=== PATIENT | female | born 1965 | race Caucasian/White ===

== ENCOUNTER 2017-03-29 18:46 | Observation (INO) ==
[2017-03-29] MEDS ORDERED: Ipratropium/Albuterol Neb 3 ML IH ONE (19:04)
[2017-03-29] MEDS ORDERED: Piperacillin/Tazobactam 3.375 GM in Water for inj. (sterile) 20 ML IVP ONE (19:04)
[2017-03-29] MEDS ORDERED: 0.9 % Sodium Chloride 1,000 ML IVC ONE ×2 (19:04→19:42)
[2017-03-29] MEDS ORDERED: methylPREDNISolone 125 MG/2 ML VIAL IVP ONE (19:04)
[2017-03-29] MEDS ORDERED: Vancomycin 1,000 MG in D5% in Water 250 ML IVPB ONE (19:05)
--- NOTE | 2017-03-29 19:09 | Emergency Department Note ---
Disposition Clinical Impression: COPD exacerbation, SIRS (systemic inflammatory response syndrome) Disposition: Admitted As Inpatient Condition: Fair Time of Disposition: 19:42 SOB HPI - General Chief Complaint: ED Shortness of Breath/Dyspnea Stated Complaint: Back Pain Time Seen by Provider: 03/29/17 18:56 Source: patient Mode of arrival: ambulatory Limitations: no limitations Nursing Notes Reviewed: Yes Vital Signs Reviewed: Yes - History of Present Illness 52-year-old female with a history of COPD, chronic back pain presents for evaluation of shortness of breath and cough. However chief complaint was initially back pain. Patient states she been feeling short of breath for the past 2 weeks. During the past week she has developed a productive cough. No notable fevers. Patient also noted some chest pain. Patient states that she has chronic back pain with multiple surgeries in the past. Patient also states that she was seen here in the past week and was been on a course of steroids. The patient also states she has been increasing use of her inhaler at home. The patient is not oxygen dependent. Patient denies any abdominal pain. No nausea or vomiting. - Related Data Home Medications Medication Instructions Recorded Confirmed Albuterol Neb [Proventil Neb] 2.5 mg IH Q4HR PRN 03/29/17 03/29/17 Baclofen [Lioresal] 10 mg PO TID 03/29/17 03/29/17 Diltiazem HCl [Diltiazem ER] 120 mg PO DAILY 03/29/17 03/29/17 Fluticasone/Salmeterol [Advair 1 each IH BID 03/29/17 03/29/17 500-50 Diskus] Gabapentin [Neurontin] 300 mg PO TID 03/29/17 03/29/17 Montelukast [Singulair] 10 mg PO DAILY 03/29/17 03/29/17 clonazePAM [Klonopin] 1 mg PO BID 03/29/17 03/29/17 predniSONE [PredniSONE] See Taper PO DAILY 03/29/17 03/29/17 Previous Rx's Medication Instructions Recorded Albuterol Sulfate [Albuterol 4 puff IH Q4HR #1 hfa.aer.ad 03/24/17 Inhaler] Meloxicam [Mobic] 7.5 mg PO DAILY #10 tablet 03/24/17 Allergies Allergy/AdvReac Type Severity Reaction Status Date / Time No Known Allergies Allergy Verified 03/23/17 19:51 All systems ED: reviewed and negative except as stated. Constitutional: Reports: as per HPI. Denies: fever Eyes: Reports: as per HPI ENT ED: Reports: as per HPI Cardiovascular: Reports: as per HPI Respiratory: Reports: as per HPI, cough, dyspnea, sputum production Gastrointestinal: Reports: as per HPI. Denies: abdominal pain, nausea, vomiting Genitourinary: Reports: as per HPI Musculoskeletal: Reports: as per HPI Integumentary: Reports: as per HPI Neurological: Reports: as per HPI Psychiatric: Reports: as per HPI Endocrine: Reports: as per HPI Hematological/Lymphatic: Reports: as per HPI Allergic/Immunologic: Reports: as per HPI Past Medical History - Past Medical History Medical history: Reports: atrial fibrillation, COPD Psychiatric history: Reports: no psych history - Social History Smoking Status: Current every day smoker Smokeless Tobacco Status: No Alcohol use: Reports: none Drug use: Reports: none Physical Exam - General Limitations: no limitations General appearance: alert, in no apparent distress - Head Head exam: atraumatic, normocephalic, normal inspection - Eye Eye exam: Present: normal appearance, PERRL, EOMI - ENT ENT exam: normal exam, normal oropharynx, mucous membranes moist - Neck Neck exam: Present: normal inspection, trachea midline - Chest Chest inspection: Present: normal inspection - Respiratory Respiratory exam: Present: accessory muscle use, prolonged expiratory phase, other (Simple sentence conversational dyspneic, bibasilar rhonchi with upper airway inspiratory expiratory wheeze). Absent: respiratory distress - Cardiovascular Cardiovascular exam: Present: normal rhythm, tachycardia - Abdominal Exam Abdominal exam: Present: soft, Non-Tender - Extremities Exam Extremities exam: Present: normal inspection. Absent: pedal edema - Back Exam Back exam: Present: normal inspection - Neurological Exam Neurological exam: Present: alert, oriented X3, CN II-XII intact - Skin Skin exam: Present: warm, dry, intact, normal color Course Course Narrative: Patient seen and examined. Patient triggered our service with a potential source of infection. Patient will get broad spectrum antibiotic coverage. Patient also did do a nebs, steroids. Basic lab work including blood cultures. Disposition will likely be admission to the hospital service. - Reevaluation(s) Reevaluation #1: Patient HR is responding to IVFs. Patient chest x-ray shows no acute findings however given the patient's fever as well as symptoms and lung findings antibiotics were initiated. Time: 19:40 Reevaluation #2: Seen and examined. Patient is moving slightly better but still has inspiratory expiratory wheezes. Patient states that she typically takes oxycodone help with her chronic back pain. Has had multiple surgeries in the past. Patient will get appropriate pain medication emergent department. Time: 19:55 Reevaluation #3: Patient's breathing treatment completed Patient continues to have inspiratory expiratory wheezes throughout. Will re-dose albuterol. Time: 20:25 Additional Reevaluation(s): Patient's tachycardia and blood pressure improved throughout the emergency department stay. Patient's most recent set of vitals show blood pressure in the 140 systolic. Vital Signs Temperature 100.3 F H 03/29/17 18:48 Pulse Rate 139 03/29/17 18:48 Respiratory Rate 24 03/29/17 18:48 Blood Pressure 171/130 03/29/17 18:48 O2 Sat by Pulse Oximetry 98 03/29/17 18:48 Temperature 100.3 F H 03/29/17 18:48 Pulse Rate 121 03/29/17 21:15 Respiratory Rate 18 03/29/17 21:15 Blood Pressure 145/94 03/29/17 21:15 O2 Sat by Pulse Oximetry 95 03/29/17 21:15 Oxygen Delivery Oxygen Delivery Room Air Shortness of Breath/Dyspnea - MDM Narrative Medical decision making narrative: 52-year-old female presents for evaluation of dyspnea as well as back pain. Patient states she has a history of COPD. Patient notes she has been dyspneic for approximately 2 weeks. Chart review shows that the patient was recently seen and started on albuterol as well as steroids. Patient notes an increasing productive cough since that time. The patient did trigger our service criteria with tachycardia and tachypnea as well as fever. Patient received 2 L of IV crystalloid. The patient also received antibiotics and blood cultures. Patient 's chest x-ray shows no acute findings. Patient was treated with triple names as well as IV steroids. Patient had 1-2 word conversational dyspneic on exam. Patient's back pain likely exacerbated by the cough. Patient does have numerous back surgeries in the past. Patient will be admitted the hospital service for a COPD exacerbation. Chest x-ray findings did not reveal any pneumonia however given the patient's severity of symptoms antibiotics were initiated. Do not believe the patient has signs and symptoms of pulmonary embolism. Patient appears to have an infectious process given her underlying lung disease with COPD; COPD exacerbation is most likely diagnosis. Patient's vitals improved during the emergency department course. - Medical Records Medical records reviewed: Yes I reviewed the patient's medical records. Patient's records reviewed show that she does have a recent ED visit where she was given albuterol as well as a course of steroids. Patient did not receive antibiotic. - Lab Data Lab results reviewed: Yes I reviewed the patient's lab results. Result diagrams: 03/29/17 19:05 03/29/17 19:05 Lab Results 03/29/17 03/29/17 03/29/17 Range/Units 19:05 19:05 19:05 WBC 6.5 (4.3-11.1) K/mcL RBC 4.17 (3.82-4.97) M/mcL Hgb 12.1 (11.5-15.4) g/dL Hct 37.5 (35.3-44.9) % MCV 89.9 (83.0-100.0) fL MCH 29.0 (28.0-33.3) pg MCHC 32.3 (31.6-35.5) g/dL RDW 14.3 (11.5-14.5) % Plt Count 256 (140-400) K/mcL MPV 10.2 (9.4-12.4) fL Seg Neutrophils % 71.0 % Band Neutrophils % 3.0 (0-4) % Lymphocytes % 16.0 % Monocytes % 9.0 % Metamyelocytes % 1.0 H (0) % Neutrophils # 4.8 (1.6-8.9) K/mcL Lymphocytes # 1.0 (0.6-4.6) K/mcL Monocytes # 0.6 (0.0-1.3) K/mcL Hypersegmented Neuts Present A (Not Present) Platelet Estimate Normal (Normal) PT (9.4-12.1) Seconds INR VBG pH (7.32-7.42) pH Units VBG pCO2 (41-51) mmHg VBG pO2 (25-50) mmHg VBG HCO3 (21-27) mEq/L Sodium 142 (136-145) mEq/L Potassium 4.4 (3.5-5.1) mEq/L Chloride 112 H (98-107) mEq/L Carbon Dioxide 22 L (23-29) mEq/L BUN 20 (6-20) mg/dL Creatinine 0.85 (0.60-1.20) mg/dL Est GFR ( Amer) > 60 (> 60) Est GFR (Non-Af Amer) > 60 (> 60) BUN/Creatinine Ratio 24 (6-26) Glucose 103 (70-105) mg/dL Calculated Osmolality 297 (280-300) Lactic Acid 1.6 (0.5-2.2) mmol/L Calcium 9.3 (8.6-10.3) mg/dL Total Bilirubin 0.2 L (0.3-1.0) mg/dL Direct Bilirubin 0.0 (0.0-0.2) mg/dL Indirect Bilirubin 0.2 (0.0-1.2) mg/dL AST 9 L (13-39) Units/L ALT 4 L (7-52) Units/L Alkaline Phosphatase 87 (34-104) Units/L Troponin I (< 0.04) ng/mL B-Natriuretic Peptide (Less than 100) pg/mL Serum Total Protein 6.9 (6.4-8.9) g/dL Albumin 4.5 (3.5-5.7) g/dL Globulin 2.4 (2.4-3.5) g/dL Albumin/Globulin Ratio 1.9 (1.1-2.2) 03/29/17 03/29/17 03/29/17 Range/Units 19:05 19:05 19:05 WBC (4.3-11.1) K/mcL RBC (3.82-4.97) M/mcL Hgb (11.5-15.4) g/dL Hct (35.3-44.9) % MCV (83.0-100.0) fL MCH (28.0-33.3) pg MCHC (31.6-35.5) g/dL RDW (11.5-14.5) % Plt Count (140-400) K/mcL MPV (9.4-12.4) fL Seg Neutrophils % % Band Neutrophils % (0-4) % Lymphocytes % % Monocytes % % Metamyelocytes % (0) % Neutrophils # (1.6-8.9) K/mcL Lymphocytes # (0.6-4.6) K/mcL Monocytes # (0.0-1.3) K/mcL Hypersegmented Neuts (Not Present) Platelet Estimate (Normal) PT 10.3 (9.4-12.1) Seconds INR 1.0 VBG pH (7.32-7.42) pH Units VBG pCO2 (41-51) mmHg VBG pO2 (25-50) mmHg VBG HCO3 (21-27) mEq/L Sodium (136-145) mEq/L Potassium (3.5-5.1) mEq/L Chloride (98-107) mEq/L Carbon Dioxide (23-29) mEq/L BUN (6-20) mg/dL Creatinine (0.60-1.20) mg/dL Est GFR ( Amer) (> 60) Est GFR (Non-Af Amer) (> 60) BUN/Creatinine Ratio (6-26) Glucose (70-105) mg/dL Calculated Osmolality (280-300) Lactic Acid (0.5-2.2) mmol/L Calcium (8.6-10.3) mg/dL Total Bilirubin (0.3-1.0) mg/dL Direct Bilirubin (0.0-0.2) mg/dL Indirect Bilirubin (0.0-1.2) mg/dL AST (13-39) Units/L ALT (7-52) Units/L Alkaline Phosphatase (34-104) Units/L Troponin I < 0.03 (< 0.04) ng/mL B-Natriuretic Peptide 18 (Less than 100) pg/mL Serum Total Protein (6.4-8.9) g/dL Albumin (3.5-5.7) g/dL Globulin (2.4-3.5) g/dL Albumin/Globulin Ratio (1.1-2.2) 03/29/17 Range/Units 19:20 WBC (4.3-11.1) K/mcL RBC (3.82-4.97) M/mcL Hgb (11.5-15.4) g/dL Hct (35.3-44.9) % MCV (83.0-100.0) fL MCH (28.0-33.3) pg MCHC (31.6-35.5) g/dL RDW (11.5-14.5) % Plt Count (140-400) K/mcL MPV (9.4-12.4) fL Seg Neutrophils % % Band Neutrophils % (0-4) % Lymphocytes % % Monocytes % % Metamyelocytes % (0) % Neutrophils # (1.6-8.9) K/mcL Lymphocytes # (0.6-4.6) K/mcL Monocytes # (0.0-1.3) K/mcL Hypersegmented Neuts (Not Present) Platelet Estimate (Normal) PT (9.4-12.1) Seconds INR VBG pH 7.34 (7.32-7.42) pH Units VBG pCO2 42 (41-51) mmHg VBG pO2 55 H (25-50) mmHg VBG HCO3 23 (21-27) mEq/L Sodium (136-145) mEq/L Potassium (3.5-5.1) mEq/L Chloride (98-107) mEq/L Carbon Dioxide (23-29) mEq/L BUN (6-20) mg/dL Creatinine (0.60-1.20) mg/dL Est GFR ( Amer) (> 60) Est GFR (Non-Af Amer) (> 60) BUN/Creatinine Ratio (6-26) Glucose (70-105) mg/dL Calculated Osmolality (280-300) Lactic Acid (0.5-2.2) mmol/L Calcium (8.6-10.3) mg/dL Total Bilirubin (0.3-1.0) mg/dL Direct Bilirubin (0.0-0.2) mg/dL Indirect Bilirubin (0.0-1.2) mg/dL AST (13-39) Units/L ALT (7-52) Units/L Alkaline Phosphatase (34-104) Units/L Troponin I (< 0.04) ng/mL B-Natriuretic Peptide (Less than 100) pg/mL Serum Total Protein (6.4-8.9) g/dL Albumin (3.5-5.7) g/dL Globulin (2.4-3.5) g/dL Albumin/Globulin Ratio (1.1-2.2) - Radiology Data Radiology results reviewed: Yes I reviewed the patient's radiology results. Chest X-Ray 03/29/17 19:04 IMPRESSION: No acute cardiopulmonary disease D/ / Kerwin Casiano MD / Kerwin Casiano MD Interpreting Provider: Kerwin Casiano MD - EKG Data EKG attestation: Yes I reviewed and interpreted this EKG. EKG shows normal: Reports: sinus rhythm Rate: Reports: tachycardia Rhythm: Reports: NSR [place]/QRS: Reports: normal Interpretation: Reports: no acute changes S.B.A.R. - S.B.A.RKerri Situation: Demographics Background: Presenting Complaint Assessment: Vital Signs, Course and respsone to treatment, Patient/Family Expectation Recommendation: Barrier(s) to disposition, Recommendation based on pending studies, treatments, or consults S.B.A.RKerri Report Given to: Dr. Dereje Womack Repor Time: 20:58 Attestation Statement - Attestation Attestation: I, Mulugeta Munguia MD, personally evaluated this patient and discussed their management with the resident physician. I reviewed the resident's note and agree with the documented findings, medical decision making, and plan of care. 52-year-old female with history of COPD presents to the emergency department complaining of increased shortness of breath over the past week with increased productive cough. She has not looked at the sputum. No significant chest pain. Patient has not noticed any fever but was noted here to have a temp of 100.3 at triage. She was seen here 6 days ago for back pain and at that time was noted to have significant wheezing. She received nebulizer treatments and was discharged with prednisone and an albuterol inhaler. Patient states despite the medications or symptoms of gotten progressively worse. On examination patient is a well-developed well-nourished male in no acute distress. She is alert and oriented 3. There is no cyanosis or diaphoresis. Chest is nontender to palpation. Breath sounds are decreased bilaterally with tight diffuse bilateral expiratory wheezes. Heart tachycardic and regular. Abdomen soft and nontender with normal bowel sounds. No pedal edema. Chest x-ray shows no acute abnormality. EKG shows a sinus tachycardia with a heart rate of [address] segment or T-wave changes noted. Labs reviewed. The hospitalist, Dr. Reyez, was consulted and accepted admission of the patient.
[2017-03-29] MEDS ORDERED: Ketorolac 15 MG/ML VIAL IVP ONE (19:13)
[2017-03-29 19:20] LABS: Hematocrit 37.5 % (35.3-44.9); Hemoglobin 12.1 g/dL (11.5-15.4); Mean Corpuscular HGB Conc 32.3 g/dL (31.6-35.5); Mean Corpuscular Volume 89.9 fL (83.0-100.0); Mean Platelet Volume 10.2 fL (9.4-12.4); Platelet Count 256 K/mcL (140-400); Red Blood Count 4.17 M/mcL (3.82-4.97); Red Cell Distribution Width 14.3 % (11.5-14.5)
[2017-03-29 19:24] LABS: VBG HCO3 23 mEq/L (21-27); VBG PCO2 42 mmHg (41-51); VBG PH 7.34 pH Units (7.32-7.42); VBG PO2 55 mmHg (25-50)
[2017-03-29 19:34] LABS: Prothrombin Time 10.3 Seconds (9.4-12.1)
[2017-03-29 19:43] LABS: Alanine Aminotransferase 4 Units/L (7-52); Albumin 4.5 g/dL (3.5-5.7); Albumin/Globulin Ratio 1.9 (1.1-2.2); Alkaline Phosphatase 87 Units/L (34-104); Aspartate Amino Transferase 9 Units/L (13-39); BUN/Creatinine Ratio 24 (6-26); Bilirubin,Indirect 0.2 mg/dL (0.0-1.2); Bilirubin,Total 0.2 mg/dL (0.3-1.0); Blood Urea Nitrogen 20 mg/dL (6-20); Calcium 9.3 mg/dL (8.6-10.3); Carbon Dioxide 22 mEq/L (23-29); Chloride 112 mEq/L (98-107); Globulin 2.4 g/dL (2.4-3.5); Glucose 103 mg/dL (70-105); Osmolality,Calculated 297 (280-300); Potassium 4.4 mEq/L (3.5-5.1); Sodium 142 mEq/L (136-145); Total Protein 6.9 g/dL (6.4-8.9); eGFR For African Americans > 60 (> 60); eGFR For Non-African Americans > 60 (> 60)
[2017-03-29 19:50] LABS: Monocytes # 0.6 K/mcL (0.0-1.3); Neutrophils # 4.8 K/mcL (1.6-8.9)
[2017-03-29 19:51] LABS: Hypersegmented Neutrophils Present (Not Present); Platelet Estimate Normal (Normal)
[2017-03-29] MEDS ORDERED: *HR* OxyCODONE Immed Rel 5 MG TABLET PO ONE (19:56)
[2017-03-29] MEDS ORDERED: Albuterol 2.5 MG/3 ML NEBULIZER IH ONE (20:25)
[2017-03-30] MEDS ORDERED: *HR* OxyCODONE Immed Rel 15 MG TABLET PO PRN (00:08)
[2017-03-30] MEDS ORDERED: OxyCODONE CONC 5 MG/0.25 ML ORAL.SYG PO PRN (00:31)
[2017-03-30] MEDS: Ipratropium/Albuterol Neb 3 ML IH SCH ×5 (00:53→21:54)
[2017-03-30] MEDS: Ipratropium/Albuterol Neb 3 ML IH PRN ×2 (00:59→08:19)
[2017-03-30] MEDS ORDERED: *HR* OxyCODONE Immed Rel 5 MG TABLET PO PRN ×2 (02:00→06:01)
--- NOTE | 2017-03-30 04:39 | Event Note ---
Date of Encounter: 03/30/17 Time of Encounter: 01:00 I have seen and examined pt independently. I have discussed with Resident physician Dr Jin regarding the management plan, plz see his documentation for details..
--- NOTE | 2017-03-30 04:53 | Internal Med History&Physical ---
<Issa Jin - Last Filed: 03/30/17 04:42> Date of Encounter: 03/30/17 Time of Encounter: 00:30 Assessment and Plan (1) COPD exacerbation Current visit: Yes Status: Acute CXR showed no acute process Patient reports mild improvement since admission Continue solumedrol 60 mg q6hr (2) Afib Current visit: Yes Status: Chronic Regular rhythm, tachycardic Patient states she was compliant with diltiazem at home Continue home diltiazem Qualifiers: Atrial fibrillation type: unspecified Qualified Code(s): I48.91 - Unspecified atrial fibrillation (3) Abdominal distention Current visit: Yes Status: Acute No abdominal pain or peritoneal signs currently Starting bowel regimen of docusate 100 mg BID, hold if diarrhea (4) GERD (gastroesophageal reflux disease) Current visit: Yes Status: Chronic Stable Qualifiers: Esophagitis presence: with esophagitis Qualified Code(s): K21.0 - Gastro- esophageal reflux disease with esophagitis (5) Tobacco abuse Current visit: Yes Status: Chronic Patient reports smoking 1/2 PPD (6) Chronic low back pain Current visit: No Status: Chronic Restarted home medications, save for oxycodone, which was started at lower dose of 10 mg (compared with 30) Checked OARRS, but no patient information available due to patient being from [place] and visiting here Added IV morphine 2mg q 6hr for breakthrough pain Qualifiers: Back pain laterality: bilateral Sciatica presence: with sciatica Sciatica laterality: sciatica laterality unspecified Qualified Code(s): M54.40 - Lumbago with sciatica, unspecified side; G89.29 - Other chronic pain; G89.29 - Other chronic pain (7) DVT prophylaxis Current visit: Yes Status: Acute Heparin subq q12h Internal Medicine - H&P: HPI Chief complaint: SOB Admitted From: Home Plans for Post Hospital Care: Home History of present illness: Ms. Vargas is a 52 year old female presenting with increased SOB consistent with the patient's "usual episodes of exacerbation" of her COPD. She complains of productive cough as well. She denies fever and chills. She denies palpitations. She tends to perseverate on her back pain, which is secondary to fractures and multiple surgeries.. She additionally complains of distention in her abdomen, though it is not significantly painful. She states her last bowel movement was yesterday morning. Past Med Surg Social Fam HX - Past Medical History Medical history: atrial fibrillation, COPD Psychiatric history: no psych history - Social History Smoking Status: Current every day smoker Smokeless Tobacco Status: No Alcohol use: none Drug use: none Internal Medicine - H&P: Meds Albuterol Sulfate [Albuterol Inhaler] 4 puff IH Q4HR #1 hfa.aer.ad 03/24/17 [Rx] Meloxicam [Mobic] 7.5 mg PO DAILY #10 tablet 03/24/17 [Rx] Albuterol Neb [Proventil Neb] 2.5 mg IH Q4HR PRN 03/29/17 [History] Baclofen [Lioresal] 10 mg PO TID 03/29/17 [History] Diltiazem HCl [Diltiazem ER] 120 mg PO DAILY 03/29/17 [History] Fluticasone/Salmeterol [Advair 500-50 Diskus] 1 each IH BID 03/29/17 [History] Gabapentin [Neurontin] 300 mg PO TID 03/29/17 [History] Montelukast [Singulair] 10 mg PO DAILY 03/29/17 [History] Oxycodone HCl 30 mg PO Q6H PRN 03/29/17 [History] clonazePAM [Klonopin] 1 mg PO BID 03/29/17 [History] predniSONE [PredniSONE] See Taper PO DAILY 03/29/17 [History] 3 Allergy/AdvReac Type Severity Reaction Status Date / Time No Known Allergies Allergy Verified 03/23/17 19:51 All Systems PM: A 10-system review of systems was performed and is negative for pertinent findings except as documented above in the HPI. Review of systems: As per HPI, otherwise negative. - Constitutional Vitals: Temp Pulse Resp BP Pulse Ox 98.0 F 124 14 164/106 96 03/30/17 04:26 03/30/17 04:26 03/30/17 04:26 03/30/17 04:26 03/30/17 04:26 General appearance: Present: cooperative, A&O X 3, pleasant, answers questions appropriately - Head Head exam: Present: atraumatic, normal inspection, normocephalic - ENT ENT exam: Present: mucous membranes moist - Neck Neck exam general surgery: Present: trachea midline - Respiratory Respiratory exam: Present: decreased breath sounds, wheezes (bilateral, scattered). Absent: accessory muscle use, respiratory distress, tachypnea - Cardiovascular Cardiovascular exam: Present: +S1, +S2, systolic murmur, tachycardia Additional comments: Regular Rhythm - GI/Abdominal GI/Abdominal exam: Present: distended, firm. Absent: tenderness, no peritoneal signs - Extremities Exam Extremities exam: Absent: pedal edema - Psychiatric Psychiatric exam: Present: normal affect, normal mood. Absent: agitated, anxious - Skin Skin exam: Present: dry, warm Internal Med - H&P Results - Labs CBC & Chem 7: 03/29/17 19:05 03/29/17 19:05 <Ortega Dejesus - Last Filed: 03/30/17 06:53> Date of Encounter: 03/30/17 Internal Medicine - H&P: HPI History of present illness: Ms. Vargas is a 52 year old female All Systems PM: A 10-system review of systems was performed and is negative for pertinent findings except as documented above in the HPI. - Constitutional Vitals: Temp Pulse Resp BP Pulse Ox 98.0 F 124 14 164/106 96 03/30/17 04:26 03/30/17 04:26 03/30/17 04:26 03/30/17 04:26 03/30/17 04:26 Internal Med - H&P Results - Labs CBC & Chem 7: 03/29/17 19:05 03/29/17 19:05 - Attending Attestation I have seen pt independently. I have discussed with resident physician regarding management plan. Agree with the documentation.
[2017-03-30] MEDS ORDERED: Albuterol 2.5 MG/3 ML NEBULIZER IH PRN (04:58)
[2017-03-30] MEDS ORDERED: Ondansetron 4 MG/2 ML VIAL IVP PRN (05:06)
[2017-03-30] MEDS ORDERED: Naloxone 0.4 MG/ML INJ IVP PRN (05:06)
[2017-03-30] MEDS ORDERED: *HR* Morphine 2 MG/ML SYRINGE IVP PRN ×2 (05:24→06:01)
[2017-03-30] MEDS: *HR* Heparin 5,000 UNIT/ML VIAL SQ SCH ×2 (08:04→18:45)
[2017-03-30] MEDS: methylPREDNISolone 125 MG/2 ML VIAL IVP SCH ×3 (08:05→14:01)
[2017-03-30] MEDS: *HR* OxyCODONE Immed Rel 15 MG TABLET PO PRN ×3 (08:36→21:21)
[2017-03-30] MEDS: clonazePAM 1 MG TABLET PO SCH ×2 (08:37→20:14)
[2017-03-30] MEDS: Diltiazem CD (24hr) 120 MG CAPSULE PO SCH (08:37)
[2017-03-30] MEDS: Baclofen 10 MG TABLET PO SCH ×3 (08:37→20:14)
[2017-03-30] MEDS: Gabapentin 300 MG CAPSULE PO SCH ×3 (08:37→20:14)
[2017-03-30 09:37] LABS: Basophils % 0.6 %; Hematocrit 33.7 % (35.3-44.9); Hemoglobin 10.8 g/dL (11.5-15.4); Immature Granulocytes % 3.9 % (0-4); Lymphocytes # 0.6 K/mcL (0.6-4.6); Lymphocytes % 9.4 %; Mean Corpuscular Hemoglobin 29.2 pg (28.0-33.3); Mean Corpuscular Volume 91.1 fL (83.0-100.0); Mean Platelet Volume 10.4 fL (9.4-12.4); Monocytes # 0.6 K/mcL (0.0-1.3); Monocytes % 9.2 %; Neutrophils # 5.3 K/mcL (1.6-8.9); Platelet Count 200 K/mcL (140-400); Red Cell Distribution Width 14.5 % (11.5-14.5); Segmented Neutrophils % 76.9 %
[2017-03-30 09:59] LABS: BUN/Creatinine Ratio 29 (6-26); Blood Urea Nitrogen 16 mg/dL (6-20); Carbon Dioxide 22 mEq/L (23-29); Chloride 112 mEq/L (98-107); Glucose 123 mg/dL (70-105); Osmolality,Calculated 297 (280-300); Potassium 4.3 mEq/L (3.5-5.1); Sodium 142 mEq/L (136-145); eGFR For African Americans > 60 (> 60); eGFR For Non-African Americans > 60 (> 60)
[2017-03-30] MEDS: Budesonide/Formoterol 160/4.5 MDI IH SCH ×2 (10:38→21:54)
--- NOTE | 2017-03-30 11:13 | Electrocardiograph Report ---
[place] [id number] Test Date: 2017-03-29 Pat Name: Darby Vargas Department: 104 Room: 3A22 Gender: F Metal Roofing Mechanic: : 1965 Requested By: Jodie See Order Number: [id number] Reading MD: Bulmaro Green MD Measurements Intervals [place] Rate: 131 P: 56 ND: 129 QRS: 62 QRSD: 81 T: 63 QT: 277 QTc: 354 Interpretive Statements SINUS TACHYCARDIA Electronically Signed On 03-30-2017 11:12:14 EST by Bulmaro Green MD
[2017-03-31] MEDS: *HR* OxyCODONE Immed Rel 15 MG TABLET PO PRN ×2 (03:21→09:44)
[2017-03-31] MEDS: Ipratropium/Albuterol Neb 3 ML IH SCH ×4 (03:30→21:10)
[2017-03-31 04:46] LABS: Hematocrit 31.5 % (35.3-44.9); Hemoglobin 10.2 g/dL (11.5-15.4); Mean Corpuscular HGB Conc 32.4 g/dL (31.6-35.5); Mean Corpuscular Hemoglobin 29.6 pg (28.0-33.3); Mean Corpuscular Volume 91.3 fL (83.0-100.0); Mean Platelet Volume 10.8 fL (9.4-12.4); Platelet Count 211 K/mcL (140-400); Red Blood Count 3.45 M/mcL (3.82-4.97); Red Cell Distribution Width 14.7 % (11.5-14.5)
[2017-03-31] MEDS: *HR* Heparin 5,000 UNIT/ML VIAL SQ SCH ×2 (05:06→18:05)
[2017-03-31 08:13] LABS: BUN/Creatinine Ratio 32 (6-26); Blood Urea Nitrogen 21 mg/dL (6-20); Calcium 8.4 mg/dL (8.6-10.3); Carbon Dioxide 26 mEq/L (23-29); Chloride 111 mEq/L (98-107); Glucose 93 mg/dL (70-105); Osmolality,Calculated 295 (280-300); Sodium 141 mEq/L (136-145); eGFR For African Americans > 60 (> 60); eGFR For Non-African Americans > 60 (> 60)
[2017-03-31] MEDS: clonazePAM 1 MG TABLET PO SCH ×2 (08:48→21:13)
[2017-03-31] MEDS: Gabapentin 300 MG CAPSULE PO SCH (08:48)
[2017-03-31] MEDS: Baclofen 10 MG TABLET PO SCH ×3 (08:48→21:14)
[2017-03-31] MEDS: predniSONE 20 MG TABLET PO SCH (08:48)
[2017-03-31] MEDS: Diltiazem CD (24hr) 120 MG CAPSULE PO SCH (08:48)
[2017-03-31] MEDS: Budesonide/Formoterol 160/4.5 MDI IH SCH ×2 (10:11→21:10)
[2017-03-31] MEDS: Levofloxacin 750 MG/150 ML 750 MG/150 ML BAG IVPB SCH (11:24)
--- NOTE | 2017-03-31 18:28 | Internal Med Progress Note ---
Date of Encounter: 03/31/17 Time of Encounter: 11:00 - Assessment and plan (1) COPD exacerbation Current Visit: Yes Status: Acute Assessment and plan: -Will continue dual nebs and Levaquin started as patient reports of no improvement in symptoms although on room air and now wheezing on exam -Patient requesting evaluation by pulmonology and will be consulted for further recommendations (2) Tobacco abuse Current Visit: Yes Status: Chronic Assessment and plan: -Smoking cessation recommended (3) Chronic low back pain Current Visit: No Status: Chronic Assessment and plan: -Patient with chronic back pain but has not been prescribe narcotics recently per [place] OARRS report -Patient offered IV Toradol but declined -Patient will need to follow-up with spine specialists and pain management as an outpatient Qualifiers: Back pain laterality: bilateral Sciatica presence: with sciatica Sciatica laterality: sciatica laterality unspecified Qualified Code(s): M54.40 - Lumbago with sciatica, unspecified side; G89.29 - Other chronic pain; G89.29 - Other chronic pain - Subjective Interval history: Patient on room air with no expiratory wheezes on exam this morning Patient unhappy when confronted about narcotic use Per pharmacy OARRS was pulled from the [facility] to [place] where patient is from and patient had not been on opiate narcotics or gabapentin recently so was discontinued. - Constitutional Vitals: Temp Pulse Resp BP Pulse Ox 98.1 F 122 16 135/88 99 03/31/17 15:27 03/31/17 15:27 03/31/17 15:47 03/31/17 15:27 03/31/17 15:47 General appearance: Present: cooperative, A&O X 3, pleasant, answers questions appropriately - Respiratory Respiratory exam: Present: CTAB. Absent: accessory muscle use, rales, rhonchi, wheezes - Cardiovascular Cardiovascular exam: Present: RRR, +S1, +S2. Absent: diastolic murmur, gallop, rubs, systolic murmur Internal Medicine: Result - Labs CBC & Chem 7: 03/31/17 04:33 03/31/17 07:17 Labs: Short CBC 03/31/17 Range/Units 04:33 WBC 7.8 (4.3-11.1) K/mcL Hgb 10.2 L (11.5-15.4) g/dL Hct 31.5 L (35.3-44.9) % Plt Count 211 (140-400) K/mcL BMP 03/31/17 07:17 Sodium 141 Potassium 4.0 Chloride 111 H Carbon Dioxide 26 BUN 21 H Creatinine 0.65 Glucose 93 Calcium 8.4 L - ABG Interpretation ABG results: PT/INR, D-dimer PT 10.3 Seconds (9.4-12.1) 03/29/17 19:05 Consult Discharge Plan - Plan Referrals: Pritesh Alexander DO [Resident] - 04/09/17 10:00 am
[2017-03-31] MEDS ORDERED: Gabapentin 300 MG CAPSULE PO STA (21:50)
[2017-04-01] MEDS: Ipratropium/Albuterol Neb 3 ML IH SCH ×3 (03:58→16:21)
[2017-04-01] MEDS: *HR* Heparin 5,000 UNIT/ML VIAL SQ SCH (06:00)
[2017-04-01] MEDS ORDERED: Diltiazem SR (12hr) 90 MG CAPSULE PO SCH (09:00)
[2017-04-01] MEDS: clonazePAM 1 MG TABLET PO SCH (09:27)
[2017-04-01] MEDS: Levofloxacin 750 MG/150 ML 750 MG/150 ML BAG IVPB SCH (09:27)
[2017-04-01] MEDS: Baclofen 10 MG TABLET PO SCH ×2 (09:27→14:48)
[2017-04-01] MEDS: predniSONE 20 MG TABLET PO SCH (09:27)
[2017-04-01 09:38] LABS: Hematocrit 34.6 % (35.3-44.9); Hemoglobin 10.9 g/dL (11.5-15.4); Mean Corpuscular HGB Conc 31.5 g/dL (31.6-35.5); Mean Corpuscular Hemoglobin 29.4 pg (28.0-33.3); Mean Corpuscular Volume 93.3 fL (83.0-100.0); Mean Platelet Volume 10.5 fL (9.4-12.4); Platelet Count 187 K/mcL (140-400); Red Blood Count 3.71 M/mcL (3.82-4.97); Red Cell Distribution Width 14.7 % (11.5-14.5)
[2017-04-01 09:41] LABS: Lymphocytes # 2.1 K/mcL (0.6-4.6)
[2017-04-01 09:48] LABS: BUN/Creatinine Ratio 27 (6-26); Blood Urea Nitrogen 16 mg/dL (6-20); Calcium 8.7 mg/dL (8.6-10.3); Carbon Dioxide 29 mEq/L (23-29); Chloride 108 mEq/L (98-107); Glucose 78 mg/dL (70-105); Osmolality,Calculated 296 (280-300); Sodium 143 mEq/L (136-145); eGFR For African Americans > 60 (> 60); eGFR For Non-African Americans > 60 (> 60)
[2017-04-01] MEDS: Budesonide/Formoterol 160/4.5 MDI IH SCH (10:48)
[2017-04-01 11:42] LABS: Eosinophils # 0.2 K/mcL (0.0-0.6); Monocytes # 0.5 K/mcL (0.0-1.3); Neutrophils # 4.1 K/mcL (1.6-8.9)
[2017-04-01 11:43] LABS: Platelet Estimate Normal (Normal)
[2017-04-01 11:58] VITALS: BP 141/101
[2017-04-01] MEDS ORDERED: Ketorolac 30 MG/ML VIAL IVP ONE (15:13)
[2017-04-01] MEDS ORDERED: *HR* Metoprolol 5 MG/5 ML VIAL IVP ONE (15:36)
--- NOTE | 2017-04-01 16:10 | Discharge Summary ---
Date of Encounter: 04/01/17 Time of Encounter: 11:00 - Discharge Diagnosis (1) COPD exacerbation Priority: Primary Status: Acute (2) Tobacco abuse Priority: Secondary Status: Chronic (3) Chronic low back pain Priority: Secondary Status: Inactive Qualifiers: Back pain laterality: unspecified Sciatica presence: with sciatica Sciatica laterality: sciatica laterality unspecified Qualified Code(s): M54.40 - Lumbago with sciatica, unspecified side; G89.29 - Other chronic pain; G89.29 - Other chronic pain - Discharge Medications Prescriptions: Ipratropium/Albuterol Neb [Duoneb] 3 ml IH [id number] #30 inhsol Diltiazem SR (12hr) [Cardizem SR] 90 mg PO BID #60 cap.er.12h Levofloxacin [Levaquin] 500 mg PO DAILY #7 tablet predniSONE [PredniSONE] 40 mg PO DAILY #10 tablet Home Medications: Albuterol Sulfate [Albuterol Inhaler] 4 puff IH Q4HR #1 hfa.aer.ad 03/24/17 [Rx] Meloxicam [Mobic] 7.5 mg PO DAILY #10 tablet 03/24/17 [Rx] Albuterol Neb [Proventil Neb] 2.5 mg IH Q4HR PRN 03/29/17 [History] Baclofen [Lioresal] 10 mg PO TID 03/29/17 [History] Fluticasone/Salmeterol [Advair 500-50 Diskus] 1 each IH BID 03/29/17 [History] Montelukast [Singulair] 10 mg PO DAILY 03/29/17 [History] clonazePAM [Klonopin] 1 mg PO BID 03/29/17 [History] Diltiazem SR (12hr) [Cardizem SR] 90 mg PO BID #60 cap.er.12h 04/01/17 [Rx] Ipratropium/Albuterol Neb [Duoneb] 3 ml IH [id number] #30 inhsol 04/01/17 [Rx] Levofloxacin [Levaquin] 500 mg PO DAILY #7 tablet 04/01/17 [Rx] predniSONE [PredniSONE] 40 mg PO DAILY #10 tablet 04/01/17 [Rx] Allergies/Adverse Reactions: 3 Allergy/AdvReac Type Severity Reaction Status Date / Time No Known Allergies Allergy Verified 03/23/17 19:51 Date of admission: 03/29/17 21:18 Primary care physician: PCP NONE Consults: 03/31/17 10:35 Consult to Electromechanical Technologist [CONS] Routine Reason for SW Consult: pt. not wanting to d/c home, and pt. is from [place] 03/31/17 18:34 Consult to Pulmonology [CONS] Routine Consulting Provider: [facility] Reason for Consult: COPD exacerbation Call Completed: No - Patient Status Disposition: Home, Self-Care Condition: Fair - Discharge Instructions Follow Up With: Pritesh Alexander DO [Resident] - 04/09/17 10:00 am Hospital course: Patient is a 52-year-old female with past medical history significant for COPD, tobacco dependence and chronic back pain who presented to the ER on 03/29/17 from [place] due to shortness of breath. She reported a recent onset of productive cough in addition to shortness of breath and decided to come to the ER for evaluation. In the ER, her labs were unremarkable and chest x-ray showed no acute findings. She was admitted to the medical floor for COPD exacerbation. During patients hospital stay, she remained on room air and was treated with IV Levaquin, DuoNebs and Solu-Medrol which was later Descalated to oral prednisone. Pulmonology was consulted and agreed with above management and recommendations for follow-up as an outpatient. She will be discharged to complete a 5 day course of Levaquin and prednisone; smoking cessation was also discussed. Patient will also need to follow-up with pain management for chronic back pain in addition to pulmonology as above. During patients hospital stay, there were also concerns for opiate abuse/ dependence; patient requesting opiate medications for chronic back pain even though her admission was for COPD exacerbation. An [place] report was pulled from [place] that showed patient had not been prescribed opiates in several months. She was prescribed benzodiazepine according [place] report which was continued during this hospitalization but was upset when opiates were discontinued. Patient was offered other alternative pain medications but only wanted opiate medications. - Time Spent with Patient Total time spent providing and/or coordinating discharge services: Less than 30 minutes - Constitutional Vitals: Temp Pulse Resp BP Pulse Ox 97.8 F 123 20 141/101 98 04/01/17 11:51 04/01/17 11:51 04/01/17 11:51 04/01/17 11:51 04/01/17 11:51 General appearance: Present: cooperative, A&O X 3, pleasant, answers questions appropriately - Respiratory Respiratory exam: Present: CTAB, wheezes. Absent: accessory muscle use, rales, rhonchi - Cardiovascular Cardiovascular exam: Present: RRR, +S1, +S2. Absent: diastolic murmur, gallop, rubs, systolic murmur
--- NOTE | 2017-04-01 18:39 | Pulmonology Consult Note ---
Date of Encounter: 04/01/17 Time of Encounter: 15:00 Assessment and Plan (1) COPD exacerbation Status: Acute Patient has multiple hospitalization and I have explained to her if she is not compliant with her inhalers as well as continue to smoke tobacco I do not expect her condition will improve and she would have multiple hospitalization with worsening of her lung function and she understand that. Patient is being appropriately treated have given her my contact information and business card to follow up as outpatient which she will need pulmonary function test as well as monitor her treatment with bronchodilators and pulmonary rehabilitation. She understand and agree with that and thank you very much for consultation. Patient is appropriate to be discharged home as long as she is compliant with her treatment. (2) Tobacco abuse Status: Chronic Advised patient to quit smoking History of Present Illness Consult date: 04/01/17 Requesting physician: Juan Sommers Reason for consult: COPD Chief complaint: Shortness of breath History of present illness: This is a very pleasant 52-year-old female with history of COPD and she has been hospitalized multiple times according to the patient and unfortunately she will continue to smoke tobacco and she has not seen a data processing manager in the past. Patient has productive cough and wheezing with dyspnea on exertion which is getting worse. Patient denies any fever or chills and denies any sick contact. Patient has chronic back pain and had multiple surgeries. Patient denies any history of significant lung disease in the family is. She denies any hemoptysis and she is not regularly taking inhalers. She normally respond to the treatment when she is hospitalized but then she will have problems again. She denies any fever or chills and no skin lesions. Past Med Surg Social Fam HX - Past Medical History Medical history: atrial fibrillation, COPD Psychiatric history: no psych history - Social History Smoking Status: Current every day smoker Smokeless Tobacco Status: No Alcohol use: none Drug use: none Medications and Allergies Albuterol Sulfate [Albuterol Inhaler] 4 puff IH Q4HR #1 hfa.aer.ad 03/24/17 [Rx] Meloxicam [Mobic] 7.5 mg PO DAILY #10 tablet 03/24/17 [Rx] Albuterol Neb [Proventil Neb] 2.5 mg IH Q4HR PRN 03/29/17 [History] Baclofen [Lioresal] 10 mg PO TID 03/29/17 [History] Fluticasone/Salmeterol [Advair 500-50 Diskus] 1 each IH BID 03/29/17 [History] Montelukast [Singulair] 10 mg PO DAILY 03/29/17 [History] clonazePAM [Klonopin] 1 mg PO BID 03/29/17 [History] Diltiazem SR (12hr) [Cardizem SR] 90 mg PO BID #60 cap.er.12h 04/01/17 [Rx] Ipratropium/Albuterol Neb [Duoneb] 3 ml IH [id number] #30 inhsol 04/01/17 [Rx] Levofloxacin [Levaquin] 500 mg PO DAILY #7 tablet 04/01/17 [Rx] predniSONE [PredniSONE] 40 mg PO DAILY #10 tablet 04/01/17 [Rx] 3 Allergy/AdvReac Type Severity Reaction Status Date / Time No Known Allergies Allergy Verified 03/23/17 19:51 All Systems: A 10-system review of systems was performed and is negative for pertinent findings except as documented above in the HPI. Physical Examination Vital Signs: Refer to nursing documentation for vital signs General appearance: appears uncomfortable Eyes: nonicteric ENT: oropharynx moist Neck: supple Effort: mildly labored Inspection: hyperextended Auscultation: bilateral: wheezes Percussion: bilateral: not dull Cardiovascular: regular rate and rhythm Gastrointestinal: normoactive bowel sounds Extremities: no cyanosis, no edema normal mental status, non-focal exam mood appropriate Results - Laboratory Findings CBC and BMP: 04/01/17 09:02 04/01/17 09:02 PT/INR, D-dimer PT 10.3 Seconds (9.4-12.1) 03/29/17 19:05 Abnormal lab findings: Abnormal lab results RBC 3.71 M/mcL (3.82-4.97) L 04/01/17 09:02 Hgb 10.9 g/dL (11.5-15.4) L 04/01/17 09:02 Hct 34.6 % (35.3-44.9) L 04/01/17 09:02 MCHC 31.5 g/dL (31.6-35.5) L 04/01/17 09:02 RDW 14.7 % (11.5-14.5) H 04/01/17 09:02 Metamyelocytes % 2.0 % (0) H 04/01/17 09:02 Myelocytes % 7.0 % (0) H 04/01/17 09:02 Hypersegmented Neuts Present (Not Present) A 03/29/17 19:05 VBG pO2 55 mmHg (25-50) H 03/29/17 19:20 Chloride 108 mEq/L (98-107) H 04/01/17 09:02 BUN/Creatinine Ratio 27 (6-26) H 04/01/17 09:02 Total Bilirubin 0.2 mg/dL (0.3-1.0) L 03/29/17 19:05 AST 9 Units/L (13-39) L 03/29/17 19:05 ALT 4 Units/L (7-52) L 03/29/17 19:05 - Diagnostic Findings Chest x-ray: report reviewed, image reviewed - Clinical Findings Intake & Output: Intake & Output 04/01/17 04/01/17 04/01/17 07:59 15:59 23:59 Intake Total 480 / 480 510 / 510 Output Total 1600 / 1600 800 / 800 Balance -1120 / -1120 -290 / -290 Weight 70.3 kg Consult Discharge Plan - Plan Referrals: Pritesh Alexander DO [Resident] - 04/09/17 10:00 am Sancho Bhatia MD [Partnered Physician] - (OFFICE WILL CALL WITH APPOINTMENT. WEB REQUEST ENTERED.) Josef Reilly DO [Partnered Physician] - 04/13/17 7:30 am Prescriptions: Ipratropium/Albuterol Neb [Duoneb] 3 ml IH [id number] #30 inhsol Diltiazem SR (12hr) [Cardizem SR] 90 mg PO BID #60 cap.er.12h Levofloxacin [Levaquin] 500 mg PO DAILY #7 tablet predniSONE [PredniSONE] 40 mg PO DAILY #10 tablet
--- NOTE | 2017-04-03 09:53 | Electrocardiograph Report ---
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
== END 2017-04-01 16:55 | disposition home or self-care (01) ==
LOC: EMEROO 18:46 → 3ANU 18:46 → SUATTDRO 21:18 → 3ANU 21:57
PROVIDERS: ADMIT Internal Medicine; ATTEND Hospitalist